=== PATIENT | female | born 1965 | race Caucasian/White ===

== ENCOUNTER → 2016-12-12 | Outpatient (CLI) | payer OTHER ==
[~2016-12-12] MED LIST: no meds
--- NOTE | 2016-12-12 14:21 | DIAGNOSTIC IMAGING REPORT ---
PET/CT CLINICAL HISTORY: Right breast B-cell lymphoma. TECHNIQUE: A PET/CT was performed from the skull base through the upper thighs following intravenous injection of 14.99 mCi of F 18 FDG IV. The injection was performed at 8:47 AM on December 12, 2016 and imaging began at 9:50 AM on December 12, 2016. Unenhanced CT was performed for attenuation correction purposes and anatomic localization. COMPARISON STUDY: None. FINDINGS: Head and neck: No cervical lymphadenopathy is identified. There is no suspicious FDG uptake within the neck. Chest: There is a 2 x 1.1 cm subcutaneous nodule of the left upper back shown on image 56 which has moderate FDG uptake within SUV max of 4.8. Note is made of a 1.4 x 0.4 cm subcutaneous nodule of the right lower back shown on image 115 which had mild FDG uptake within SUV max of 1.2. A 1.1 cm nodule within the upper outer quadrant of the right breast is shown on image 97. This has mild FDG uptake with an SUV max of 1.3. No pathologically enlarged thoracic lymph nodes are present. There are no suspicious pulmonary nodules. Abdomen and Pelvis: The spleen is mildly enlarged. Splenic radiotracer uptake is within normal limits. No abdominal or pelvic lymphadenopathy is present. There are numerous small subcutaneous nodules of the anterior abdominal wall which demonstrates minimal FDG uptake. These nodules are subcentimeter in size. Musculoskeletal: No suspicious skeletal uptake is identified. IMPRESSION: 1. Numerous FDG avid subcutaneous nodules, the largest of which is a 2 x 1.1 cm left upper back nodule which has moderate FDG uptake. Although nonspecific, the imaging appearance would be consistent with the history of lymphoma. 2. 1.1 cm nodule within the upper outer quadrant of the right breast. This is nonspecific but has mild FDG uptake and lymphoma could have this imaging appearance. Electronically signed by: Bennett Mcgrath M.D. 12/12/2016 2:19 PM Dictated Date/Time: 12/12/2016 10:37 AM
== END | disposition home or self-care (01) ==
LOC: C.PET 08:36
PROVIDERS: ATTEND Surgery
DX: C85.99 Non-Hodgkin lymphoma, unspecified, extranodal and solid organ sites (principal)

== ENCOUNTER → 2017-01-03 | Outpatient (CLI) | payer OTHER | END | disposition home or self-care (01) | LOC: C.PATH 08:04 | PROVIDERS: ATTEND Radiology Radiation Oncology | DX: C85.19 Unspecified B-cell lymphoma, extranodal and solid organ sites (principal) ==

== ENCOUNTER → 2017-01-08 | Day surgery (SDC) | payer OTHER ==
[~2017-01-08] VITALS: Ht 157.5 cm; Wt 74.0 kg
[2017-01-08 10:03] VITALS: BP 132/62; PULSE 64; TEMP 36.9; O2SAT 100; Ht 157.5 cm; Wt 74.0 kg
[2017-01-08 10:06] LABS: PLATELET COUNT 161 K/uL (130-400)
[2017-01-08 10:16] LABS: PARTIAL THROMBOPLASTIN RATIO 1.1; PROTHROMBIN TIME (PATIENT) 10.8 SECONDS (9.0-12.0)
--- NOTE | 2017-01-08 11:33 | Discharge Instructions ---
Discharge Instructions Procedure Procedure Date: Jan 08, 2017. Reason for visit: B Cell Lymphoma, Left Upper Back Lesion. Discharge Discharge Date: Jan 08, 2017. Discharge Diagnosis: soft tissue nodule upper back, possible lymphoma Instructions Activity Recommendations: No limitations Return to School/Work: no limitations Allergies Coded Allergies: No Known Allergies (Unverified , 01/08/17) Gracy Barcenas Recommendations: Call your doctor if: * Temperature above 101 degrees * Pain not relieved by pain medicine ordered * There is increased drainage or redness from any incision * You have any unanswered questions or concerns. Your Doctors Instructions noted above were prepared by provider Vitor Schwartz. Patient Signature Section: Patient Instructions Signature Page Tammy Herman Patient (or Guardian) Signature/Date: I have read and understand the instructions given to me by my caregivers. Caregiver/RN/Doctor Signature/Date: The above-named patient and/or guardian has received patient instructions on this date. + Original Patient Signature Page (only) stays with chart. Please make copy for patient.
--- NOTE | 2017-01-08 13:12 | DIAGNOSTIC IMAGING REPORT ---
CT GUIDED FINE-NEEDLE ASPIRATION CHEST WALL BIOPSY. CT DOSE: 391.44 mGycm CLINICAL HISTORY: B-cell lymphoma. New subcutaneous nodule in the left back. TECHNIQUE: A timeout was performed. The risks of the procedure were explained the patient and informed consent was obtained. COMPARISON STUDY: PET/CT scan dated 12/12/2016 FINDINGS: The patient's FDG avid nodule within the subcutaneous tissues of the left upper back was localized utilizing CT scanning. 3 passes with a 25-gauge needle were performed. Initial pathologic review indicates satisfactory material. The final 2 passes were sent for flow cytometry. IMPRESSION: Successful CT guided fine-needle aspiration biopsy of a subcutaneous nodule within the left upper back Electronically signed by: Vitor Schwartz M.D. 01/08/2017 1:10 PM Dictated Date/Time: 01/08/2017 1:08 PM
== END | disposition home or self-care (01) ==
LOC: C.ACU 09:52
PROVIDERS: ATTEND Radiology Radiation Oncology
DX: C85.19 Unspecified B-cell lymphoma, extranodal and solid organ sites (principal)

== ENCOUNTER → 2017-04-05 | Outpatient (CLI) | payer OTHER ==
[~2017-04-05] MED LIST changes: +OPTIRAY 320 IV PRN
--- NOTE | 2017-04-05 10:11 | DIAGNOSTIC IMAGING REPORT ---
CT ABD/PELVIS IV AND ORAL CONT CLINICAL HISTORY: LYMPHOMA COMPARISON STUDY: None. TECHNIQUE: Following the IV administration of 120 mL of Optiray-320, CT scan of the abdomen and pelvis was performed from the lung bases to the proximal femurs. Images are reviewed in the axial, sagittal, and coronal planes. IV contrast was administered without complication. CT DOSE: FINDINGS: Lower chest: There are bibasal atelectatic changes. Liver: The contrast-enhanced liver is normal in size, contour, and attenuation. There is no intrahepatic biliary ductal dilatation. The hepatic veins and portal veins are patent. Gallbladder: Unremarkable. Spleen: The spleen is minimally enlarged measuring 12 cm. Pancreas: Unremarkable. Adrenal glands: Unremarkable. Kidneys: There is a 3.7 cm upper pole right renal cyst. There is a 4 mm lower pole right renal cyst. No solid renal masses are visualized. There is no hydronephrosis. Bowel: There are no transition zones indicate bowel obstruction. The appendix appears normal. There is no acute diverticulitis. Peritoneum: There is no intraperitoneal free air or abdominal ascites. There is a tiny fat-containing umbilical hernia. Vasculature: The abdominal aorta is normal in course and caliber. Adenopathy: There are prominent lymph nodes in the region the gastrohepatic ligament measuring up to 11 mm in short axis. Pelvic viscera: There is a suspected nabothian gland cyst. There is a 2.6 cm hypodense lesion within the posterior uterine fundus, likely representing a fibroid Skeletal structures: No destructive osseous lesions are seen. IMPRESSION: 1. No acute inflammatory changes. Normal appendix. 2. No evidence of bowel obstruction. No evidence of free air 3. Diverticulosis. No evidence of acute diverticulitis 4. Mild splenomegaly (12 cm) 5. Minimally enlarged lymph nodes in the gastrohepatic ligament 6. 26 mm uterine fibroid Electronically signed by: Vitor Schwartz M.D. 04/05/2017 10:09 AM Dictated Date/Time: 04/05/2017 10:04 AM
--- NOTE | 2017-04-05 10:19 | DIAGNOSTIC IMAGING REPORT ---
CT SCAN OF THE CHEST WITH IV CONTRAST CLINICAL HISTORY: Lymphoma. COMPARISON STUDY: PET CT dated 12/12/2016. TECHNIQUE: Following the IV administration of 120 cc of Optiray 320, CT scan of the thorax was performed from the thoracic inlet to the upper abdomen. Images are reviewed in the axial, sagittal, and coronal planes. IV contrast was administered without complication. CT DOSE: 685.60 mGy.cm FINDINGS: Thyroid: Imaged portions of the thyroid gland are normal in size and attenuation. Bilateral low-attenuation thyroid nodules measure up to 11 mm. Thoracic aorta: The thoracic aorta is normal in caliber and demonstrates standard 3-vessel arch anatomy. No dissection is seen. Pulmonary vasculature: The pulmonary trunk is normal in caliber. There are no filling defects identified in the central pulmonary vessels to indicate pulmonary embolus. Note that this examination was not protocoled for evaluation of the pulmonary arteries. Heart: The heart is mildly enlarged and without pericardial effusion. Lungs and pleural spaces: Emphysema is observed. There is no airspace consolidation or pleural effusion. There are foci of linear atelectasis versus scarring seen bilaterally. The trachea and central airways are clear. Mediastinum: There are no pathologically enlarged mediastinal lymph nodes. Arianna: Clear. Axillae: There is no axillary lymphadenopathy. Upper abdomen: The spleen is markedly enlarged, measuring at least 15.8 cm in length. The liver appears steatotic. A 3.8 cm cyst arises from the upper pole the right kidney. There is a small hiatal hernia. Enlarged upper abdominal lymph nodes are noted. A gastrohepatic node on image #244 measures 1.9 x 1.3 cm. There is diffuse wall thickening identified along the lesser curvature of the stomach. Skeletal structures: The skeletal structures appear osteopenic. No lytic or blastic bony lesions are seen. Soft tissues: There is a 3.7 x 1.5 cm lobulated lesion within the soft tissues of the left upper back seen on image #67. There are additional soft tissue lesions within the subcutaneous fat in the right shoulder seen on images #55 and #61 which measure up to 1.3 cm. A lesion in the lower back centrally on image #229 measures 2.3 x 0.8 cm. IMPRESSION: 1. Cardiomegaly and emphysema. There is no airspace consolidation or pleural effusion. 2. There are no pathologically enlarged mediastinal, hilar, or axillary lymph nodes. 3. There are several subcutaneous soft tissue lesions in the chest wall identified and detailed above. These have increased in size from the 12/12/2016 PET examination where they were noted to be FDG avid. This is consistent with progression of disease. 4. Marked splenomegaly. 5. There is upper abdominal lymphadenopathy. 6. There is significant wall thickening identified along the greater curvature of the stomach. This appears increased from previous and likely represents progression of lymphomatous involvement. 7. Hepatic steatosis. 8. Additional findings as above. Electronically signed by: Morales Mishra M.D. 04/05/2017 10:17 AM Dictated Date/Time: 04/05/2017 10:08 AM
== END | disposition home or self-care (01) ==
LOC: C.CTS 07:39
PROVIDERS: ATTEND Internal Medicine Hematology & Oncology
DX: C83.09 Small cell B-cell lymphoma, extranodal and solid organ sites (principal); K57.90 Diverticulosis of intestine, part unspecified, without perforation or abscess without bleeding; D25.9 Leiomyoma of uterus, unspecified; I51.7 Cardiomegaly; J43.9 Emphysema, unspecified; R16.1 Splenomegaly, not elsewhere classified; K76.0 Fatty (change of) liver, not elsewhere classified

== ENCOUNTER → 2017-04-16 | Day surgery (SDC) | payer OTHER ==
[~2017-04-16] VITALS: Ht 160 cm; Wt 77.3 kg
[~2017-04-16] MED LIST changes: +LIDOCAINE HCL 2% 2 ML VIAL (20MG/ML) ONE; -OPTIRAY 320 IV PRN; +PROPOFOL IV EMULSION 10 MG/ML 20 ML VIAL IV ONE; +SODIUM CHLORIDE 0.9% 500ML 500 ML IV ONE
[2017-04-16 10:17] VITALS: Ht 160 cm; Wt 77.3 kg
--- NOTE | 2017-04-16 10:42 | Endo History and Physical ---
History & Physical Date of Service: April 16, 2017. Chief Complaint: lymphoma Referring Physician: Dr. Derrick Dietz and Dr. fifi Shelby History of Present Illness 51 yo CF who presents for EGD secondary to lymphoma and abnormal CT scan of the abdomen. Past Surgical History Hx Cardiac Surgery: No Hx Internal Defibrillator: No Hx Pacemaker: No Hx Abdominal Surgery: Yes (ceserean x 3) Hx of Implantable Prosthesis: No Hx Post-Op Nausea and Vomiting: No Hx Cancer Surgery: No Hx Thoracic Surgery: No Hx Orthopedic: No Hx Urinary Tract Surgery: No Family History None Social History Smoking Status: Former Smoker Hx Substance Use: No Hx Alcohol Use: No Allergies Coded Allergies: No Known Allergies (Verified , 04/16/17) Current Medications Reported Home Medications Medications Dose Route/Sig Max Daily Dose Days Date Category [no meds] 12/28/16 Reported Vital Signs Weight (Kilograms): 77.27 Height (Feet): 5 Height (Inches): 3 Date Time Temp Pulse Resp B/P Pulse Ox O2 Delivery O2 Flow Rate FiO2 04/16/17 10:29 36.6 66 20 131/74 99 Room Air Physical Exam General Appearance: WD/WN, no apparent distress Respiratory/Chest: Auscultation: breath sounds normal Cardiovascular: Heart Auscultation: RRR Abdomen: Bowel Sounds: normal Inspection & Palpation: soft, non-distended, no tenderness, guarding & rebound Assessment and Plan Assessment: 51 yo CF who presents for EGD secondary to lymphoma and abnormal CT scan of the abdomen. Plan: Proceed with EGD.
--- NOTE | 2017-04-16 10:51 | Discharge Instructions ---
Endoscopy Patient Instructions Date / Procedure(s) Performed April 16, 2017. EGD Allergy Information Coded Allergies: No Known Allergies (Verified , 04/16/17) Discharge Date / Findings April 16, 2017. Gastric antrum biopsies Medication Instructions OK to resume all medications today as prescribed Reported Home Medications Medications Dose Route/Sig Max Daily Dose Days Date Category [no meds] 12/28/16 Reported Provider Instructions Activity Restrictions - No exercising or heavy lifting for 24 hours. - Do not drink alcohol the day of the procedure. - Do not drive a car or operate machinery until the day after the procedure. - Do not make any important decisions or sign important papers in 24 hours after the procedure. Following Day: - Return to full activity which may include returning to work/school. Diet Start your diet with liquids and light foods (jello, soup, juice, toast). Then eat your usual diet if not nauseated. Treatment For Common After Affects For mild abdominal pain, bloating, or excessive gas: - Rest - Eat lightly - Lie on right side Follow-Up Information Follow-up with Dr. Derrick Dietz and Dr. fifi Shelby as scheduled Anesthesia Information What You Should Know You have had a procedure that required some medicine to reduce anxiety and discomfort. This treatment is called moderate sedation. After receiving the treatment, you may be sleepy, but you will be able to breathe on your own. The effects of the treatment may last for several hours. Follow these instructions along with Activity/Diet recommendations noted above: * Do NOT do anything where dizziness or clumsiness would be dangerous. * Rest quietly at home today, then you can be up and about tomorrow. * Have a responsible person stay with you the rest of today. * You may have had an I.V. today. If so, you may take the dressing off later today. Recommendations Call your doctor if: * Trouble breathing * Continuous vomiting for more than 24 hours * Temperature above 101 degrees * Severe abdominal pain or bloating * Pain not relieved by pain medicine ordered * There is increased drainage or redness from any incision * A large amount of rectal bleeding greater than 2-3 tablespoons. (If you had a polyp/s removed or have hemorrhoids, a small amount of blood - from the rectum is to be expected.) * You have any unanswered questions or concerns. IN THE EVENT OF A SERIOUS EMERGENCY, GO TO THE NEAREST EMERGENCY ROOM Your discharge instructions were prepared by provider Leonel Franco. Patient Instructions Signature Page Tammy Herman Patient (or Guardian) Signature/Date: I have read and understand the instructions given to me by my caregivers. Caregiver/RN/Doctor Signature/Date: The above-named patient and/or guardian has received patient instructions on this date. + Original Patient Signature Page (only) stays with chart. Please make copy for patient.
--- NOTE | 2017-04-16 10:56 | GI REPORT ---
Procedure Date: 04/16/2017 10:37 AM Procedure: Upper GI endoscopy Indications: Abnormal CT of the GI tract Medicines: Monitored Anesthesia Care Complications: No immediate complications. Estimated Blood Loss: Estimated blood loss: none. Procedure: Pre-Anesthesia Assessment: - Prior to the procedure, a History and Physical was performed, and patient medications and allergies were reviewed. The patient's tolerance of previous anesthesia was also reviewed. The risks and benefits of the procedure and the sedation options and risks were discussed with the patient. All questions were answered, and informed consent was obtained. Prior Anticoagulants: The patient has taken no previous anticoagulant or antiplatelet agents. ASA Grade Assessment: II - A patient with mild systemic disease. After reviewing the risks and benefits, the patient was deemed in satisfactory condition to undergo the procedure. After obtaining informed consent, the endoscope was passed under direct vision. Throughout the procedure, the patient's blood pressure, pulse, and oxygen saturations were monitored continuously. The Scope was introduced through the mouth, and advanced to the second part of duodenum. The upper GI endoscopy was accomplished without difficulty. The patient tolerated the procedure well. Findings: The esophagus was normal. The entire examined stomach was normal. Biopsies were taken with a cold forceps for Helicobacter pylori testing. The examined duodenum was normal. Impression: - Normal esophagus. - Normal stomach. Biopsied. - Normal examined duodenum. Recommendation: - Resume previous diet. - Continue present medications. - Await pathology results. - Return to referring physician as previously scheduled. Leonel Franco DO 04/16/2017 10:55:13 AM This report has been signed electronically. Note Initiated On: 04/16/2017 10:37 AM I attest to the content of the Intraoperative Record and orders documented therein, exceptions below
--- NOTE | 2017-04-16 11:16 | Anesthesiology Progress Note ---
Anesthesia Post Op Note Date & Time April 16, 2017 at 11:16 Vital Signs Pain Intensity: 0 Vital Signs Past 12 Hours Date Time Temp Pulse Resp B/P Pulse Ox O2 Delivery O2 Flow Rate FiO2 04/16/17 10:53 72 18 99/53 97 Room Air 04/16/17 10:29 36.6 66 20 131/74 99 Room Air Notes Mental Status: alert / awake / arousable, participated in evaluation Pt Amnestic to Procedure: Yes Nausea / Vomiting: adequately controlled Pain: adequately controlled Airway Patency, RR, SpO2: stable & adequate BP & HR: stable & adequate Hydration State: stable & adequate Anesthetic Complications: no major complications apparent
[2017-04-16 11:29] VITALS: BP 110/59; PULSE 58; O2SAT 97
== END | disposition home or self-care (01) ==
LOC: C.GI 10:05
PROVIDERS: ATTEND Internal Medicine
DX: R93.3 Abnormal findings on diagnostic imaging of other parts of digestive tract (principal); C85.90 Non-Hodgkin lymphoma, unspecified, unspecified site; K29.50 Unspecified chronic gastritis without bleeding; Z87.891 Personal history of nicotine dependence; Z68.30 Body mass index [BMI] 30.0-30.9, adult; E66.9 Obesity, unspecified

== ENCOUNTER → 2017-07-02 | Outpatient (CLI) | payer OTHER ==
[~2017-07-02] MED LIST changes: -LIDOCAINE HCL 2% 2 ML VIAL (20MG/ML) ONE; +OPTIRAY 320 IV PRN; -PROPOFOL IV EMULSION 10 MG/ML 20 ML VIAL IV ONE; -SODIUM CHLORIDE 0.9% 500ML 500 ML IV ONE
--- NOTE | 2017-07-02 12:50 | DIAGNOSTIC IMAGING REPORT ---
CHEST, ABDOMEN, AND PELVIS CT WITH CONTRAST CT DOSE: 1422.85 mGycm HISTORY: Restaging. LYMPHOMA TECHNIQUE: Multiaxial CT images of the chest, abdomen, and pelvis were performed following the intravenous administration of contrast. Oral contrast was also administered. A dose lowering technique was utilized adhering to the principles of ALARA. COMPARISON: Chest abdomen and pelvis CT 04/05/2017. FINDINGS: The central airways are patent. No pleural effusions. No pneumothorax. No suspicious pulmonary nodules. A few scattered linear densities likely represent subsegmental atelectasis are scarring. This is similar to the prior study. No suspicious lytic or blastic osseous lesions. Stable hypodense thyroid nodules with the largest on the right measuring 1 cm. Subcentimeter axillary, mediastinal and hilar lymph nodes remain stable. These do not CT criteria for pathologic involvement at this time. Stable mildly prominent epicardial lymph nodes with the largest on the right measuring 8 mm in short axis diameter. The central pulmonary arteries are patent. Normal caliber thoracic aorta. There are again noted multiple scattered soft tissue nodules seen throughout the chest, abdomen, and pelvis subcutaneous fat. The majority of these are not significantly changed. However, the dominant soft tissue lesion within the left back has decreased in size. This previous measured 3.7 x 1.5 cm. This currently measures 3.0 x 0.9 cm. Hepatic steatosis. No hepatic or splenic masses. There are few subcentimeter hypodense lesions within the liver measuring up to 3 mm. These are too small to characterize but remain stable and likely represent cysts. The spleen is slightly increased in size measuring 16.6 cm. Persistent masslike thickening within the lesser curvature of the stomach extension into the stomach lumen. No evidence for bowel obstruction. Mild soft tissue stranding surrounding the body of the stomach which is concerning for extension of tumor. Gastrohepatic lymphadenopathy is not significantly changed. The pancreas is unremarkable. There are right renal cysts, unchanged. Normal left kidney. Mild periportal and aortocaval lymphadenopathy is also unchanged. Single prominent left external iliac lymph node measuring 13 x 8 mm. This is also unchanged. Stable hypodense lesions within the uterus with the largest at the fundus measuring 3 cm. Normal bladder. There are 2 right ovarian cysts with the largest measuring 2.2 cm. Colonic diverticulosis. No bowel wall thickening or obstruction. Normal appendix. Single prominent soft tissue nodule within the anterior omentum/perigastric location on image 404 of 717. This measures 9 mm. This also remains unchanged. IMPRESSION: 1. Multiple subcutaneous soft tissue nodule seen scattered throughout the chest, abdomen, pelvis. The majority of these are unchanged. Dominant lesion within the left upper back has decreased in size. 2. Slight increase in size of the splenomegaly. 3. No change in the upper abdominal lymphadenopathy and masslike thickening within the stomach. 4. Stable prominent epicardial lymph nodes. 5. Additional findings as described above. Electronically signed by: Crescencio Ureña M.D. 07/02/2017 12:48 PM Dictated Date/Time: 07/02/2017 12:31 PM
== END | disposition home or self-care (01) ==
LOC: C.CTS 09:38
PROVIDERS: ATTEND Internal Medicine Hematology & Oncology
DX: C83.09 Small cell B-cell lymphoma, extranodal and solid organ sites (principal)

== ENCOUNTER → 2017-09-26 | Outpatient (CLI) | payer OTHER ==
--- NOTE | 2017-09-26 13:18 | DIAGNOSTIC IMAGING REPORT ---
CHEST CT WITH CONTRAST HISTORY: Follow-up study in a patient with lymphoma C83.09 TECHNIQUE: Multiaxial CT images of the chest were performed following the intravenous administration of 94 mL Optiray 320. A dose lowering technique was utilized adhering to the principles of ALARA. COMPARISON: CT chest 07/02/2017. FINDINGS: Bilateral low attenuating thyroid nodules are again seen, 11 mm within the inferior thyroid lobes bilaterally. There is no pathologic adenopathy identified about the chest. Mildly prominent 9 mm right hilar lymph node is present. Mildly enlarged lymph nodes of the upper abdomen are again seen including perigastric, gastrohepatic and periportal lymph nodes. Periportal lymph nodes measure up to 2.0 x 1.0 cm, previously 2.0 x 1.0 cm. 1.6 x 1.1 cm lymph node adjacent to the gastric cardia on image 240 of series 4 measuring 1.6 x 1.0 cm. Mildly prominent epicardial lymph nodes are seen measuring up to 5 mm in short axis on image 187 series 4, unchanged. 8 mm lymph node on image 181 series 4 is also unchanged. The heart is normal in size without pericardial effusion. No thoracic aortic aneurysm or dissection. The opacified pulmonary arterial tree is unremarkable. There is no pneumothorax or pleural effusion. Linear subsegmental pleural based opacities of the lung bases suggest atelectasis/scarring. No lobar airspace consolidations identified. There are no suspicious pulmonary nodules. The central airways are patent. Spleen is enlarged measuring up to 15 cm in length, decreased in size from comparison which previously measured up to 16.47 m. Masslike thickening of the gastric wall is again seen. Multiple areas of subcutaneous nodularity throughout the chest, back and upper abdominal wall is again noted. Dominant lesion of the right paracentral back is again seen, 2.7 x 1.1 cm on image 217 series 4, previously measuring 2.4 x 1.1 cm. 1.4 x 0.9 cm nodule of the left lateral chest wall on image 28 series 4 with only partially imaged on prior study. 1.9 cm lesion of the left back adjacent to the left shoulder has decreased in size from prior study, previously measuring 3.0 cm in length. Cyst of the superior pole right kidney is noted. The bones appear intact. No suspicious lytic or blastic bony lesions. IMPRESSION: 1. No acute intrathoracic abnormality identified. 2. Multiple subcutaneous nodules about the chest and back are again seen, most of which are stable in size. Previously described nodule of the left back has decreased in size as above. 3. Stable size of the upper abdominal adenopathy and mildly prominent epicardial lymph nodes. 4. Decreased splenomegaly with unchanged masslike thickening of the proximal stomach. 5. Additional findings as above. Electronically signed by: Gavin Castorena M.D. 09/26/2017 1:17 PM Dictated Date/Time: 09/26/2017 1:03 PM
--- NOTE | 2017-09-26 13:42 | DIAGNOSTIC IMAGING REPORT ---
ABDOMEN AND PELVIS CT WITH IV AND ORAL CONTRAST CT DOSE: 797.63 mGy.cm HISTORY: Lymphoma. Follow-up. TECHNIQUE: Multiaxial CT images of the abdomen and pelvis were performed following the use of intravenous and oral contrast. A dose lowering technique was utilized adhering to the principles of ALARA. COMPARISON STUDY: Abdomen and pelvis CT 07/02/2017. FINDINGS: Bibasilar linear densities consistent with subsegmental atelectasis. No suspicious lytic or blastic osseous lesions. Slightly prominent anterior diaphragmatic/pericardial lymph nodes remain unchanged. The liver, gallbladder, and pancreas are unremarkable. Normal left kidney and adrenal glands. Stable hypodense lesions within the right kidney which likely represent cysts. Stable splenomegaly. Proximal gastric wall masslike thickening is again noted. This demonstrates soft tissue extension into the adjacent medial perigastric fat. Gastrohepatic lymphadenopathy is not significantly changed. Mild periaortic lymphadenopathy is also stable. Stable upper anterior omental nodule/lymph node on image 35. Multiple scattered small subcutaneous soft tissue nodules are not significantly changed. Stable 3.2 cm mass within the uterus. This appears to contain a small amount of fat and likely represents a lipoleiomyoma. No evidence for bowel obstruction. Colonic diverticulosis. IMPRESSION: Overall, no significant change in the lymphadenopathy, multiple scattered subcutaneous soft tissue nodules, splenomegaly, and masslike thickening of the stomach. Electronically signed by: Crescencio Ureña M.D. 09/26/2017 1:40 PM Dictated Date/Time: 09/26/2017 1:28 PM
== END | disposition home or self-care (01) ==
LOC: C.CTS 10:42
PROVIDERS: ATTEND Internal Medicine Hematology & Oncology
DX: C83.09 Small cell B-cell lymphoma, extranodal and solid organ sites (principal)

== ENCOUNTER → 2018-03-27 | Outpatient (CLI) | payer OTHER ==
--- NOTE | 2018-03-27 15:56 | DIAGNOSTIC IMAGING REPORT ---
CT (CHEST) THORAX WITH CT DOSE: HISTORY: Lymphoma CT TECHNIQUE: Multiaxial CT images of the chest were performed following the intravenous administration of contrast. A dose lowering technique was utilized adhering to the principles of ALARA. COMPARISON: 09/26/2017 FINDINGS: The lungs are clear. The mediastinal vascular structures are within normal limits. No mediastinal or hilar lymphadenopathy. No pleural effusion or pneumothorax. Limited views of the upper abdomen demonstrate a normal liver and spleen. There continue to be multiple soft tissue nodules within the soft tissues both anterior and posterior aspect of the chest. These are and extrinsic to the chest specifically. There are waxing and waning with several slightly larger and several resolved. Significance is unknown. Limited evaluation the abdomen shows mild fatty infiltration of liver with a stable right renal cyst. Adenopathy previously described is stable. IMPRESSION: 1. No significant abnormality of the chest 2. Waxing and waning subcutaneous nodularity throughout the subcutaneous soft tissues of uncertain significance. 3. Fatty infiltration of liver. 4. Unchanging right renal cyst with several upper abdominal nodes. The above report was generated using voice recognition software. It may contain grammatical, syntax or spelling errors. Electronically signed by: Carlos Urbina M.D. 03/27/2018 3:55 PM Dictated Date/Time: 03/27/2018 3:51 PM
--- NOTE | 2018-03-27 16:00 | DIAGNOSTIC IMAGING REPORT ---
ABD/PELVIS IV AND ORAL CONT CLINICAL HISTORY: 52 years-old Female presenting with lymphoma. TECHNIQUE: Multidetector CT of the abdomen and pelvis was performed after the administration of oral and intravenous contrast. IV contrast: 93 mL of Optiray 320. A dose lowering technique was used consistent with the principles of ALARA (as low as reasonably achievable). COMPARISON: 09/26/2017. CT DOSE (mGy.cm): The estimated cumulative dose is 754.52 mGy.cm. FINDINGS: [employer] topogram: Unremarkable. Lung bases: Minimal basilar opacities, likely atelectasis. Normal heart size. No pericardial or pleural effusion. Liver: Normal morphology. Subcentimeter well-defined hypodense lesion in the inferior lateral left hepatic lobe, likely hepatic cyst or hamartoma. Patent hepatic vasculature. Biliary: No intrahepatic or extrahepatic biliary ductal dilatation. Gallbladder decompressed. Pancreas: Normal. Spleen: Normal in size measuring 11 cm in maximal sagittal dimension. The spleen previously measured 11 cm. Adrenal glands: Normal. Kidneys and ureters: Well-defined hypodensity at the upper pole the right kidney consistent with simple cyst. Additional diminutive cyst suspected. No nephrolithiasis. No hydronephrosis. Bladder: Normal. Pelvic organs: Uterus contains a fatty lesion along the anterior wall likely lipoleiomyoma. Ovaries normal. Bowel: Diverticulosis of the sigmoid colon. No pericolonic inflammatory changes. Few scattered diverticula elsewhere in the colon. The appendix is normal. No bowel obstruction. Wall thickening of the gastric fundus and body similar to prior exam. Trace. Gastric fat infiltration. No other sites of bowel wall thickening. No bowel obstruction. Peritoneal cavity: No free fluid or intraperitoneal gas. Soft tissue nodule in the anterior peritoneum in the upper gastric measuring 9 mm (series 7 image 146), unchanged. Additional smaller similar appearing soft tissue nodule in the omentum or mesentery of the epigastrium (series 7 image 155). Lymph nodes: Subcentimeter lymph nodes in the pericaval and portacaval region measuring up to 6 mm in the short axis similar to prior exam. Persistent celiac axis lymph nodes measuring up to 12 mm in the short axis (series 7 image 83), previously 11 mm. Vasculature: Atherosclerosis of the normal caliber abdominal aorta. IVC patent. Abdominal wall: Interval increase in size of multifocal enhancing soft tissue masses in the anterior abdominal wall measuring up to 2 cm (series 7 image 151). These are also noted in the right lateral abdominal wall and elsewhere in the subcutaneous tissue of the imaged body. A prominent lesion is noted in the subcutaneous tissue of the lumbar region measuring 3.4 cm and is intimately associated with the cutis, previously 2.2 cm. Musculoskeletal: Degenerative changes of the spine. IMPRESSION: 1. Interval increase in size of multifocal superficial and peritoneal soft tissue nodules concerning for progression of disease. 2. Essentially stable upper abdominal lymphadenopathy. 3. Persistent masslike thickening of the gastric fundus and body concerning for lymphomatous involvement versus gastritis/peptic ulcer disease. The appearance is unchanged from prior. Perigastric inflammatory change is also similar to prior. No lalito evidence of perforation. 4. Diverticulosis. 5. Uterine lipoleiomyoma, unchanged. Electronically signed by: Artemio Brunson M.D. 03/27/2018 3:59 PM Dictated Date/Time: 03/27/2018 3:48 PM
== END | disposition home or self-care (01) ==
LOC: C.CTS 13:17
PROVIDERS: ATTEND Internal Medicine Hematology & Oncology
DX: C83.09 Small cell B-cell lymphoma, extranodal and solid organ sites (principal); K57.30 Diverticulosis of large intestine without perforation or abscess without bleeding; D26.9 Other benign neoplasm of uterus, unspecified